=== PATIENT | male | born 1980 | race Caucasian/White ===

== ENCOUNTER 2016-03-24 20:48 | Emergency (ER) | payer MEDICARE, OTHER ==
[2016-03-25 00:05] LABS: ABSOLUTE NEUTROPHIL COUNT 2.7 K/mm3 (1.8-7.7); BASO % 0.5 % (0.2-1.0); HEMATOCRIT 39.5 % (32.0-52.0); HEMOGLOBIN 12.9 gm/l (14.0-18.0); IMM NEUT% 0.3 % (0-1); LYMPH # 0.7 (1.0-4.8); MEAN CELL VOLUME 90.4 fl (80.0-94.0); MEAN CORPUSCULAR HEMOGLOBIN 29.5 pg (27.0-31.0); MEAN CORPUSCULAR HGB CONC 32.7 g/dl (33.0-37.0); MEAN PLATELET VOLUME 9.5 fl (7.4-10.4); MONO # 0.5 (0.0-0.8); MONO % 12.9 % (4-12); NEUT % 68.3 % (43-75); PLATELET COUNT 337 K/mm3 (130-400); RED CELL DISTRIBUTION WIDTH 13.9 % (11.5-14.5)
[2016-03-25 00:24] LABS: ALB/GLOB RATIO 1.1 (>1.0); ALBUMIN 4.4 gm/dL (3.5-5.7); CALCIUM 9.5 mg/dL (8.6-10.3)
[2016-03-25 01:00] LABS: ATYPICAL LYMPHOCYTE 4 %; BAND 3 % (0-10); BASOPHIL 1 % (0-1); EOSINOPHIL 0 % (1-3); LYMPHOCYTE 16 % (15-45); MONOCYTE 11 % (4-12); NEUTROPHILS 65 % (43-75); PLATELET ESTIMATE NORMAL (NORMAL); TOTAL CELLS COUNTED 100
[2016-03-25 01:09] LABS: INR 3.28; PROTHROMBIN TIME 36.6 SECONDS (9.3-11.4)
== END 2016-03-25 02:08 | disposition home or self-care (01) ==
LOC: ED 20:48
DX: K94.29 Other complications of gastrostomy (principal); L02.31 Cutaneous abscess of buttock; I48.91 Unspecified atrial fibrillation; Z79.01 Long term (current) use of anticoagulants; Z79.82 Long term (current) use of aspirin; Z79.899 Other long term (current) drug therapy